=== PATIENT | male | born 1995 | race African-American/Black ===

== ENCOUNTER 2020-10-21 23:04 | Emergency (ER) | payer OTHER ==
[~2020-10-21] VITALS: Ht 188 cm; Wt 68.0 kg
[2020-10-22 01:10] VITALS: BP 112/68
[2020-10-22] MEDS ORDERED: cefTRIAXone SOD 1,000 MG VL IM ONE (01:45)
[2020-10-22] MEDS ORDERED: AZITHROMYCIN 250 MG TAB PO ONE (01:45)
[2020-10-22 02:28] LABS: Urine Bacteria NONE SEEN /hpf (None Seen); Urine Blood Negative /uL (Negative); Urine Mucus FEW (None Seen); Urine Specific Gravity 1.024 (1.001-1.035); Urine WBC 310 /hpf (0 - 3)
[2020-10-22 02:40] LABS: Alcohol, Urine < 3.0 mg/dL (0-10); Amphetamine Screen, Urine NEGATIVE (NEGATIVE); Barbiturate Scree,Urine NEGATIVE (NEGATIVE); Benzodiazephine Screen, Urine NEGATIVE (NEGATIVE); Cannabinoid Screen, Urine POSITIVE (NEGATIVE); Cocaine Screen, Urine NEGATIVE (NEGATIVE)
[2020-10-22 02:46] LABS: Opiate Scree,Urine NEGATIVE (NEGATIVE); Phencyclidine Screen, Urine NEGATIVE (NEGATIVE)
== END 2020-10-22 07:17 | disposition home or self-care (01) ==
LOC: ER 23:04
DX: N39.0 Urinary tract infection, site not specified (principal); F12.10 Cannabis abuse, uncomplicated; Z20.2 Contact with and (suspected) exposure to infections with a predominantly sexual mode of transmission
CPT/HCPCS: 80307; 81001; 99283; J0696